=== PATIENT | male | born 1990 | race Caucasian/White ===

== ENCOUNTER 2018-08-05 00:39 | Emergency (ER) | payer SELFPAY ==
[~2018-08-05] VITALS: Ht 177.8 cm; Wt 85.7 kg
[2018-08-05 00:43] VITALS: BP 143/92
--- NOTE | 2018-08-05 00:54 | NUR ---
PT TAKEN TO BED 6
--- NOTE | 2018-08-05 00:55 | NUR ---
PT PRESENTED ER WITH C/O PAIN TO THE RIGHT FINGER. PT STATED THAT HE SMASHED IT WHILE AT WORK TODAY. PAIN IS LEVEL 8/10. PT HAS SOME SWELLING AND BRUISING. PT FEELS PRESSURE. KNA AND MEDICAL HX IS ASTHMA. SKIN IS PINK/WARM/DRY; AAOX4 WITH EVEN AND STEADY GAIT; VSS; PATIENT POSITIONED FOR COMFORT; HOB ELEVATED; BEDRAILS UP X2; BED DOWN. ER MD MADE AWARE OF PT STATUS.
--- NOTE | 2018-08-05 01:12 | NUR ---
Dr. Guzman evaluating patient at bedside.
[2018-08-05] MEDS ORDERED: IBUPROFEN 800 MG TAB PO ONE (01:20)
--- NOTE | 2018-08-05 01:29 | NUR ---
X-Ray at bedside.
[2018-08-05] MEDS ORDERED: IBUPROFEN 800 MG TAB ONE (01:40)
[2018-08-05 02:06] VITALS: BP 122/89
== END 2018-08-05 02:06 | disposition home or self-care (01) ==
LOC: MED 00:39
DX: S60.132A Contusion of left middle finger with damage to nail, initial encounter (principal); J45.909 Unspecified asthma, uncomplicated; W22.8XXA Striking against or struck by other objects, initial encounter; Y93.89 Activity, other specified; Y92.89 Other specified places as the place of occurrence of the external cause; Y99.8 Other external cause status
CPT/HCPCS: 11740; 73140; 99284; Q0092